=== PATIENT | female | born 1990 | race Caucasian/White ===

== ENCOUNTER 2024-09-28 11:05 | Inpatient (IN) | payer OTHER ==
[2024-09-28] MEDS: KETOROLAC 15 MG/ML 1 ML VIAL IVP STA (13:12)
[2024-09-28] MEDS: ORPHENADRINE 30 MG/ML 2 ML VIAL IVP STA (13:12)
[2024-09-28] MEDS: HYDROmorphone 1 MG/ML 1 ML SYRINGE IVP STA (13:13)
--- NOTE | 2024-09-28 13:28 | ED ---
General Adult HPI - General Chief complaint: Extremity Problem,Nontraumatic Stated complaint: L leg pain Time Seen by Provider: 09/28/24 11:18 Source: patient, RN notes reviewed Mode of arrival: ambulatory Limitations: no limitations - History of Present Illness Initial comments: This is a 34-year-old female presenting for lower back and left leg pain/numbness x 1 month. Patient states her pain and numbness started after use of a decompression table at her chiropractor's office. States pain progressively worsened over the next several days afterwards, including pain into her rectum with associated shooting/tingling into her left lower extremity extending to her outer foot. States she worked closely with chiropractor in addressing her pain over the next several weeks with transient relief of symptoms. Patient endorses numbness in her rectal and genital region as well as between her thighs and occasional sharp pain in her left calf. Patient states pain has worsened significantly since last night despite use of ice and ibuprofe n. States pain worsens when sitting/standing upright and is relieved when supine. States she is felt wetness from possible urinary incontinence but is unsure if she was actually incontinent. Denies fever, chills, chest pain, dyspnea, abdominal pain, N/V/D. Onset/Timin -: month(s) Location: genitals, buttocks, left, lower extremity Radiation: distal Severity scale (1-10): 8 Quality: other (Tingling, shooting) Consistency: constant Improves with: immobilization Worsens with: movement Associated Symptoms: other (Perineal and inner thigh paresthesia) Treatments Prior to Arrival: NSAID, cold therapy - Related Data Home Medications Medication Instructions Recorded Confirmed Ibuprofen [Motrin Ib] 400 - 600 mg PO Q4H PRN 09/28/24 09/28/24 Allergies Allergy/AdvReac Type Severity Reaction Status Date / Time Penicillins Allergy Rash/Hives Verified 09/28/24 14:49 Review of Systems ROS Statement: Those systems with pertinent positive or pertinent negative responses have been documented in the HPI. ROS Other: All systems not noted in ROS Statement are negative. Past Medical History Past Medical History: No Reported History History of Any Multi-Drug Resistant Organisms: None Reported Past Surgical History: No Surgical Hx Reported Past Psychological History: Anxiety Smoking Status: Never smoker Past Alcohol Use History: Rare Past Drug Use History: Marijuana General Exam Limitations: no limitations General appearance: alert, in no apparent distress Head exam: Present: atraumatic, normocephalic, normal inspection Eye exam: Present: normal appearance, PERRL, EOMI. Absent: scleral icterus, conjunctival injection, periorbital swelling ENT exam: Present: normal exam, mucous membranes moist Neck exam: Present: normal inspection. Absent: tenderness, meningismus, lymphadenopathy Respiratory exam: Present: normal lung sounds bilaterally. Absent: respiratory distress, wheezes, rales, rhonchi, stridor Cardiovascular Exam: Present: regular rate, normal rhythm, normal heart sounds. Absent: systolic murmur, diastolic murmur, rubs, gallop, clicks GI/Abdominal exam: Present: soft, normal bowel sounds. Absent: distended, tenderness, guarding, rebound, rigid Extremities exam: Present: full ROM, normal capillary refill, other (Patient notes inner thigh paresthesia. BLE distal neurovascular and motor function in tact. Dorsalis pedis pulse +2 bilaterally. Bilateral strength 5/5 with plantar/dorsiflexion, hip and knee flexion). Absent: tenderness, pedal edema, joint swelling, calf tenderness Back exam: Present: muscle spasm, paraspinal tenderness (Positive left parasacral muscle spasm and point tenderness), vertebral tenderness (Positive significant lumbar sacral TTP without obvious crepitus or step-off), other (Patient notes significant lower back pain when upright, preferring to remain supine). Absent: CVA tenderness (R), CVA tenderness (L) Neurological exam: Present: alert, oriented X3, CN II-XII intact Psychiatric exam: Present: normal affect, normal mood Skin exam: Present: warm, dry, intact, normal color. Absent: rash Course Vital Signs 09/28/24 09/28/24 12:16 15:04 Temperature 97.7 F 98.0 F Pulse Rate 80 89 Respiratory 22 20 Rate Blood Pressure 111/69 116/73 O2 Sat by Pulse 98 100 Oximetry Medical Decision Making - Medical Decision Making Was pt. sent in by a medical professional or institution (, PA, [facility] [employer], urgent care, hospital, or fci...) When possible be specific @ -No Did you speak to anyone other than the patient for history (EMS, parent, family, police, friend...)? What history was obtained from this source @ -No Did you review nursing and triage notes (agree or disagree)? Why? @ -I reviewed and agree with nursing and triage notes Were old charts reviewed (outside hosp., previous admission, EMS record, old EKG, old radiological studies, urgent care reports/EKG's, fci records)? Report findings @ -No old charts were reviewed Differential Diagnosis (chest pain, altered mental status, abdominal pain women, abdominal pain men, vaginal bleeding, weakness, fever, dyspnea, syncope, headache, dizziness, GI bleed, back pain, seizure, CVA, palpatations, mental health, musculoskeletal)? @ -Differential Back Pain: Strain, zoster, cauda equina syndrome, epidural abscess, vertebral osteomyelitis, discitis, fracture, subluxation, disc herniation, DJD, spinal stenosis, dissection, AAA, pancreatitis, peptic ulcer disease, pyelonephritis, kidney stone, this is not meant to be an all-inclusive list. EKG interpreted by me (3pts min.). @ -Not done X-rays interpreted by me (1pt min.). @ -None done CT interpreted by me (1pt min.). @ -Lumbar spine CT shows large central disc herniation with caudad migratory component resulting in spinal cord compression and significant canal stenosis at L5-S1. No acute fractures visualized. U/S interpreted by me (1pt. min.). @ -None done What testing was considered but not performed or refused? (CT, X-rays, U/S, labs)? Why? @ -None What meds were considered but not given or refused? Why? @ -None Did you discuss the management of the patient with other professionals (professionals i.e. , PA, [facility], lab, RT, psych nurse, social media marketing specialist, full fashioned garment knitter, teacher, chief innovation officer, correctional casework specialist)? Give summary @ -Spoke to Nikita from orthopedics who advised to admit under medicine with Ortho consult if there are any concerning CT findings. Spoke to Dr. Elam from [facility] who advised stat MRI with orthopedics consult. Was smoking cessation discussed for >3mins.? @ -No Was critical care preformed (if so, how long)? @ -No Were there social determinants of health that impacted care today? How? (Homelessness, low income, unemployed, alcoholism, drug addiction, transportation, low edu. Level, literacy, decrease access to med. care, [facility], rehab)? @ -No Was there de-escalation of care discussed even if they declined (Discuss DNR or withdrawal of care, Hospice)? DNR status @ -No What co-morbidities impacted this encounter? (DM, HTN, Smoking, COPD, CAD, Canc er, CVA, ARF, Chemo, Hep., AIDS, mental health diagnosis, sleep apnea, morbid obesity)? @ -None Was patient admitted / discharged? Hospital course, mention meds given and route, prescriptions, significant lab abnormalities, going to OR and other pertinent info. @ - Patient initially provided IV Dilaudid, Toradol and Norflex. Lumbar spine CT shows large central disc herniation with caudad migratory component resulting in spinal cord compression and significant canal stenosis at L5-S1. No acute fractures visualized. Patient given IV Decadron. Spoke to Dr. Elam from [facility] who advised stat MRI with orthopedics consult. Stat lumbar MRI ordered. Lab work generally unremarkable. Discussed patient with Dr. Rodriguez. Undiagnosed new problem with uncertain prognosis? @ -Cauda equina Drug Therapy requiring intensive monitoring for toxicity (Heparin, Nitro, Insulin, Cardizem)? @ -No Were any procedures done? @ -No Diagnosis/symptom? @ -Cauda equina syndrome Acute, or Chronic, or Acute on Chronic? @ -Acute Uncomplicated (without systemic symptoms) or Complicated (systemic symptoms)? @ -Complicated Side effects of treatment? @ -No Exacerbation, Progression, or Severe Exacerbation? @ -No Poses a threat to life or bodily function? How? (Chest pain, USA, MA, pneumonia, PE, COPD, DKA, ARF, appy, cholecystitis, CVA, Diverticulitis, Homicidal, Suicidal, threat to staff... and all critical care pts) @ -Cauda equina - Lab Data Result diagrams: 09/28/24 13:08 09/28/24 13:08 Lab Results 09/28/24 09/28/24 09/28/24 Range/Units 13:08 13:08 13:08 WBC 5.16 (4.50-10.00) 10*3/uL RBC 3.95 L (4.10-5.20) 10*6/uL Hgb 12.5 (12.0-15.0) g/dL Hct 35.2 L (37.2-46.3) % MCV 89.1 (80.0-97.0) fL MCH 31.6 (27.0-32.0) pg MCHC 35.5 (32.0-37.0) g/dL Plt Count 183 (140-440) 10*3/uL MPV 11.4 (9.5-12.2) fL Immature Gran % (Auto) 0.2 % Neutrophils % 53.4 % Lymphocytes % 38.6 % Monocytes % 5.4 % Eosinophils % 1.4 % Basophils % 1.0 % Immature Gran # 0.01 (0.00-0.04) 10*3/uL Neutrophils # 2.76 (1.80-7.70) 10*3/uL Lymphocytes # 1.99 (0.90-5.00) 10*3/uL Monocytes # 0.28 (0.20-1.00) 10*3/uL Eosinophils # 0.07 (0.04-0.35) 10*3/uL Basophils # 0.05 (0.00-0.10) 10*3/uL Sodium 139 (137-145) mmol/L Potassium 3.8 (3.5-5.1) mmol/L Chloride 106 (98-107) mmol/L Carbon Dioxide 19 L (22-30) mmol/L Anion Gap 14 mmol/L BUN 22 H (7-17) mg/dL Creatinine 0.75 (0.52-1.04) mg/dL Est GFR (CKD-EPI)AfAm >90 (>60 ml/min/1.73 sqM) Est GFR (CKD-EPI)NonAf >90 (>60 ml/min/1.73 sqM) Glucose 74 (74-99) mg/dL Calcium 9.6 (8.4-10.2) mg/dL Total Bilirubin 0.7 (0.2-1.3) mg/dL AST 18 (14-36) U/L ALT 11 (4-34) U/L Alkaline Phosphatase 46 (38-126) U/L Total Protein 7.7 (6.3-8.2) g/dL Albumin 4.8 (3.5-5.0) g/dL HCG, Qual Not Detected Urine Color Urine Appearance (Clear) Urine pH (5.0-8.0) Ur Specific [place] (1.001-1.035) Urine Protein (Negative) Urine Glucose (UA) (Negative) Urine Ketones (Negative) Urine Blood (Negative) Urine Nitrite (Negative) Urine Bilirubin (Negative) Urine Urobilinogen (<2.0) mg/dL Ur Leukocyte Esterase (Negative) 09/28/24 Range/Units 13:46 WBC (4.50-10.00) 10*3/uL RBC (4.10-5.20) 10*6/uL Hgb (12.0-15.0) g/dL Hct (37.2-46.3) % MCV (80.0-97.0) fL MCH (27.0-32.0) pg MCHC (32.0-37.0) g/dL Plt Count (140-440) 10*3/uL MPV (9.5-12.2) fL Immature Gran % (Auto) % Neutrophils % % Lymphocytes % % Monocytes % % Eosinophils % % Basophils % % Immature Gran # (0.00-0.04) 10*3/uL Neutrophils # (1.80-7.70) 10*3/uL Lymphocytes # (0.90-5.00) 10*3/uL Monocytes # (0.20-1.00) 10*3/uL Eosinophils # (0.04-0.35) 10*3/uL Basophils # (0.00-0.10) 10*3/uL Sodium (137-145) mmol/L Potassium (3.5-5.1) mmol/L Chloride (98-107) mmol/L Carbon Dioxide (22-30) mmol/L Anion Gap mmol/L BUN (7-17) mg/dL Creatinine (0.52-1.04) mg/dL Est GFR (CKD-EPI)AfAm (>60 ml/min/1.73 sqM) Est GFR (CKD-EPI)NonAf (>60 ml/min/1.73 sqM) Glucose (74-99) mg/dL Calcium (8.4-10.2) mg/dL Total Bilirubin (0.2-1.3) mg/dL AST (14-36) U/L ALT (4-34) U/L Alkaline Phosphatase (38-126) U/L Total Protein (6.3-8.2) g/dL Albumin (3.5-5.0) g/dL HCG, Qual Urine Color Colorless Urine Appearance Clear (Clear) Urine pH 5.5 (5.0-8.0) Ur Specific [place] 1.021 (1.001-1.035) Urine Protein Negative (Negative) Urine Glucose (UA) Negative (Negative) Urine Ketones 2+ H (Negative) Urine Blood Negative (Negative) Urine Nitrite Negative (Negative) Urine Bilirubin Negative (Negative) Urine Urobilinogen <2.0 (<2.0) mg/dL Ur Leukocyte Esterase Negative (Negative) Disposition Clinical Impression: Cauda equina compression Disposition: ADMITTED IP TO THIS HOSP Condition: Fair Referrals: Tania Davila MD [REFERRING] - 1-2 days None,Stated [Primary Care Provider] - 1-2 days Time of Disposition: 14:25 Decision Date: 09/28/24 Decision Time: 14:25
[2024-09-28 13:29] LABS: Basophils # (A) 0.05 10*3/uL (0.00-0.10); Basophils % (A) 1.0 %; Eosinophils # (A) 0.07 10*3/uL (0.04-0.35); Eosinophils % (A) 1.4 %; HCT 35.2 % (37.2-46.3); HGB 12.5 g/dL (12.0-15.0); Lymphocytes # (A) 1.99 10*3/uL (0.90-5.00); Lymphocytes % (A) 38.6 %; MCH 31.6 pg (27.0-32.0); MCHC 35.5 g/dL (32.0-37.0); MCV 89.1 fL (80.0-97.0); Monocytes # (A) 0.28 10*3/uL (0.20-1.00); Monocytes % (A) 5.4 %; Neutrophils # (A) 2.76 10*3/uL (1.80-7.70); Neutrophils % (A) 53.4 %; Platelet Count 183 10*3/uL (140-440); RBC 3.95 10*6/uL (4.10-5.20); RDW 11.2 % (11.5-14.5); WBC 5.16 10*3/uL (4.50-10.00)
[2024-09-28] MEDS: DEXAMETHASONE SOD PHOSPHATE 10 MG/ML 1 ML VIAL IVP STA (13:37)
[2024-09-28 13:45] LABS: ALT 11 U/L (4-34); AST 18 U/L (14-36); African American GFR (CKD) >90 (>60 ml/min/1.73 sqM); Albumin 4.8 g/dL (3.5-5.0); Alkaline Phosphatase 46 U/L (38-126); Anion Gap 14 mmol/L; Blood Urea Nitrogen 22 mg/dL (7-17); Calcium 9.6 mg/dL (8.4-10.2); Carbon Dioxide 19 mmol/L (22-30); Chloride 106 mmol/L (98-107); Glucose 74 mg/dL (74-99); Non-African American GFR(CKD) >90 (>60 ml/min/1.73 sqM); Potassium 3.8 mmol/L (3.5-5.1); Sodium 139 mmol/L (137-145); Total Protein 7.7 g/dL (6.3-8.2)
[2024-09-28 14:01] LABS: Bilirubin,Urine Negative (Negative); Blood,Urine Negative (Negative); Color,Urine Colorless; Glucose,Urine (UA) Negative (Negative); Ketones,Urine 2+ (Negative); Leukocyte Esterase,Urine Negative (Negative); Nitrite,Urine Negative (Negative); PH, Urine 5.5 (5.0-8.0); Protein,Urine Negative (Negative); Specific Gravity,Urine 1.021 (1.001-1.035); Urobilinogen,Urine <2.0 mg/dL (<2.0)
--- NOTE | 2024-09-28 14:32 | CT ---
EXAMINATION TYPE: CT lumbar spine wo con CT DLP: 313.2 mGycm, Automated exposure control for dose reduction was used. DATE OF EXAM: 09/28/2024 2:11 PM COMPARISON: None. CLINICAL INDICATION:Female, 34 years old with history of Perineal paresthesia with lower back pain/TT P; PHH, Perineal paresthesia with lower back and leg pain., pain TECHNIQUE: Multiple axial images were obtained from the midportion of T11 through the sacroiliac mary kay nts. Soft tissue and bone windows in coronal and sagittal planes were obtained and reviewed. 3-D ref ormats of the bones were created on a separate workstation and submitted for review. Contrast used: mL of , (None, if empty). Oral contrast used: (None, if empty). FINDINGS: Alignment: There are 5 lumbar type vertebral bodies. There is mild retrolisthesis of L5 on S1. Bone: No acute fractures. Discs: T12-L1: No spinal canal or neural foraminal stenosis is identified. L1-L2: No spinal canal or neural foraminal stenosis is identified. L2-L3: No spinal canal or neural foraminal stenosis is identified. L3-L4: No spinal canal or neural foraminal stenosis is identified. L4-L5: There is a circumferential disc bulge seen resulting in mild spinal canal stenosis and mild ri ght neural foraminal stenosis. L5-S1: There is a large central disc extrusion of a partially calcified disk with suggested caudad mi gration of approximately 1.0 cm resulting in significant spinal canal stenosis and compression of the spinal cord at this level. No significant neural foraminal stenosis identified. Other: None IMPRESSION: 1. Large central disc herniation with a caudad migratory component resulting in spinal cord compressi on and significant spinal canal stenosis at L5-S1. Limited visualization of the spinal canal on this study. Dedicated MRI lumbar spine could provide better spinal cord details. 2. No acute fractures. Mild degenerative disk disease at L4-L5. [facility], , 09/28/2024 2:30 PM
[2024-09-28] MEDS ORDERED: NALOXONE 0.4 MG/ML 1 ML VIAL IV PRN (15:15)
[2024-09-28] MEDS: HYDROmorphone 1 MG/ML 1 ML SYRINGE IVP PRN (16:00)
[2024-09-28] MEDS: ONDANSETRON 4 MG/2 ML VIAL IVP PRN (16:00)
[2024-09-28] MEDS ORDERED: TEMAZEPAM 15 MG CAP PO PRN (16:34)
[2024-09-28] MEDS: LORazepam 1 MG/0.5 ML VIAL IV STA (17:32)
--- NOTE | 2024-09-28 18:37 | MR ---
EXAMINATION TYPE: MR lumbar spine wo/w con DATE OF EXAM: 09/28/2024 6:29 PM COMPARISON: CT. CLINICAL INDICATION: Female, 34 years old with history of Central canal disc herniation with peroneal numb; PHH, central canal disc herniation with peroneal numb TECHNIQUE: Multi planar, multi sequence imaging was performed utilizing: T1-weighted, T2-weighted, a nd turbo inversion recovery imaging of the lumbar spine. IV Contrast: 5ml mL Gadobutrol (None, if empty) FINDINGS: Alignment: The lumbar vertebral bodies have preserved heights and alignment. Cord: The conus medullaris and the distal spinal cord appear unremarkable with regards to their signa l intensity and morphology. Bones/Discs: Mild degeneration changes throughout the spine with osteophyte formation and facet joint arthropathy. Intervertebral disc signal is maintained. No abnormal inversion recovery signal to sugg est bony edema. T12-L1: No evidence of significant spinal canal stenosis or neural foraminal stenosis. L1-L2: No evidence of significant spinal canal stenosis or neural foraminal stenosis. L2-L3: No evidence of significant spinal canal stenosis or neural foraminal stenosis. L3-L4: No evidence of significant spinal canal stenosis or neural foraminal stenosis. L4-L5: No evidence of significant spinal canal stenosis or neural foraminal stenosis. L5-S1: Large central disc extrusion with caudad lesion likely migration of approximately 1.0 cm resul ting in significant spinal canal stenosis and compression of the spinal cord at this level. No signif icant neural foraminal stenosis identified. Large herniation displaces forming S1-S2 nerves. No significant spinal canal or neural foraminal stenosis in the remainder of the visualized levels. Other findings: None. IMPRESSION: 1. L5-S1 Large central disc herniation with a caudad migratory component resulting in spinal cord com pression and significant spinal canal stenosis at L5-S1 this displaces the exiting S1-S2 nerves. 2. No acute fractures. Mild degenerative disk disease at L4-L5. [facility], , 09/28/2024 6:35 PM
[2024-09-28] MEDS: HEPARIN SODIUM,PORCINE 5,000 UNIT/ML 1 ML VIAL SQ SCH (20:41)
[2024-09-28] MEDS: KETOROLAC 15 MG/ML 1 ML VIAL IVP PRN (20:42)
[2024-09-28] MEDS ORDERED: DEXAMETHASONE SOD PHOSPHATE 4 MG/ML 1 ML VIAL IV PRN (21:59)
[2024-09-28] MEDS ORDERED: SENNOSIDES 8.6 MG TAB PO PRN (21:59)
--- NOTE | 2024-09-28 21:59 | P.PN ---
Progress Note - Text Progress Note Date: 09/28/24 Patient Name Zion Martinez History/Background 34-year-old female presents to the emergency department with complaints of increasing pain in the lower extremities as well as numbness in the genitals and weakness. This has been going on for the past month. Patient was admitted to the medicine service with orthopedic spine consultation. Clinical Observations MRI of lumbar spine demonstrated a large L5-S1 disc herniation with severe spondylosis, disc collapse as well as bilateral foraminal stenosis and central stenosis that is severe. On the floor, patient was able to minimally ambulate around the room, however having difficulty due to pain. Nursing reports bladder scan showed 199 cc and patient did void on her own. Patient states that numbness has decreased in genitals, however still having inner thigh numbness and tingling that goes down her legs. Patient is currently on IV steroids, Toradol, and PO Gabapentin which is helping with symptoms and pain medication. Plan/Recommendations Patient will be taken urgently in the morning for L5-S1 microdiscectomy due to impending cauda equina symptoms. Currently managing symptoms with IV steroids, Toradol, and PO Gabapentin along with pain medication, which is helping with her symptoms and we will continue this. She will be kept NPO, abx ordered and TXA for surgery. Risks Potential risks associated with the L5-S1 microdiscectomy procedure include bleeding, infection, nerve damage which may result in permanent numbness or weakness, cerebrospinal fluid leak, recurrence of disc herniation, and failure to alleviate symptom completely.
[2024-09-28] MEDS: GABAPENTIN 300 MG CAP PO SCH (23:12)
[2024-09-28] MEDS: HYDROmorphone 0.5 MG/0.5 ML SYRINGE IVP PRN (23:14)
[2024-09-29] MEDS: KETOROLAC 15 MG/ML 1 ML VIAL IM SCH (01:15)
[2024-09-29] MEDS: PANTOPRAZOLE 40 MG TABLET PO SCH (05:21)
--- NOTE | 2024-09-29 07:29 | P.HPOR ---
History of Present Illness H&P Date: 09/29/24 Lou Donovan presents with the chief complaint of "really consistent back problems" for the last year and a half, with acute worsening over the past month. Patient reports that after being placed on a decompression table by her chiropractor one month ago, she experienced immediate onset of severe pain "coming right out of my behind" that radiated down her leg. The pain progressively worsened over three days to the point where she "didn't really sleep for like three days because of the amount of pain." Patient describes associated bowel and bladder dysfunction, including loss of bowel control with diarrhea episodes where she has "no control, no time whatsoever to get there." She reports intermittent numbness in the groin area and occasional loss of sensation in the genitals, describing it as "bloating" and "like a vaginal cramp." Patient denies current asymmetric symptoms, stating both sides feel "the same as far as like" pain and numbness. Patient has been seeing chiropractors for treatment, initially with minimal benefit from one provider, then switching to another who was "more informative, more gentle." After the decompression table incident, she was seen twice daily for approximately two and a half weeks with continued worsening after each decompression session. 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 [place] - Enjoys dancing as therapy - History of ballet when younger Objective Physical Examination: - Sensation testing: Patient able to feel touch bilaterally and symmetrically - Rectal sensation: Intact - Straight leg raise test: Left leg raising causes pulling sensation in hamstring extending up to the back, described as "like a twang" - No current asymmetric pain or numbness reported during examination -4/5 DF/PF BLE -Decreased S1 sensation as well as S2-3 sensation Imaging: - MRI demonstrates very large disc herniation at L5-S1 with significant degenerative changes and arthritis at this level with severe stenosis. - Disc height severely compromised with minimal remaining disc material -L4-5 spondylosis with degenerative disc changes. Assessment 1. Large disc herniation at L5-S1 with cauda equina syndrome - Supporting findings: - Very large disc herniation on MRI at L5-S1 level - Bowel dysfunction with no loss of control - Intermittent genitourinary numbness and sensation changes - Severe radicular pain with leg radiation - Progressive neurological symptoms over one month - Differential diagnoses: Lumbar spinal stenosis, degenerative disc disease with instability 2. Degenerative disc disease L4-S1 with arthritis - Supporting findings: - Significant degenerative changes visible on imaging - Chronic back pain history - Loss of disc height - Family history of spinal problems Plan 1. Large disc herniation at L5-S1 with cauda equina syndrome - Urgent surgical intervention required today - Two surgical options discussed with patient: a) Laminoforaminotomy with microdiscectomy - minimal approach to decompress nerves and remove herniated disc material b) Laminoforaminotomy with posterior lumbar interbody fusion (PLIF) - deco mpression plus fusion with cage and hardware - Patient given time to consider surgical options - NPO status maintained for surgery - Recovery expectations: 6-8 weeks initial healing, physical therapy at 2 weeks - Long-term prognosis: 80-90% improvement expected based on studies -Risks and benefits discussed at length. 2. Degenerative disc disease L5-S1 - Surgical management as above will address both herniation and degenerative changes - Discussion of potential future adjacent level disease due to biomechanical changes - Patient counseled on activity modifications post-operatively - Follow-up planned post-operatively to assess surgical outcomes Risks Though surgery is aimed to reduce or eliminate symptoms, risks associated with both surgical options include, but are not limited to, the followin. Infection: As with any surgical procedure, there is a risk of infection at the surgical site, which may require further treatment. 2. Bleeding: There is a possibility of significant blood loss during the procedure. 3. Nerve Damage: While the goal is to relieve nerve compression, there is a risk of additional damage to the nerves during surgery, possibly leading to worsened symptoms. 4. Re-herniation or Adjacent Segment Disease: There is a risk that the remaining disc may herniate again or that degeneration may occur in adjacent segments due to altered spine mechanics. 5. Dural Tear: There is a possibility of a tear in the dura mater, which can result in cerebrospinal fluid leakage and may require additional intervention to repair. 6. Hardware Complications: In the case of fusion, there is a risk of complications involving the surgical hardware, such as screws or rods breaking or loosening over time. Patients are encouraged to discuss these risks, as well as any other concerns, with their surgical team to make an informed decision. The medical necessity for surgical intervention in Zion's case is driven by the presence of a large disc herniation at the L5-S1 level, which is causing significant neurological symptoms, including severe radicular pain, bowel and bladder dysfunction, and intermittent numbness in the groin and genital area. This condition is indicative of possible cauda equina syndrome, which necessitates urgent surgical intervention to relieve nerve compression, prevent further neurological deterioration, and address the patient's debilitating symptoms. The surgical rationale includes two potential procedures: a microdiscectomy to remove the herniated disc material and decompress the affected nerves for s ymptom relief, or a more comprehensive approach involving spinal fusion to stabilize the spinal segment, restore disc height, and prevent further degeneration. Both options aim to alleviate immediate symptoms and improve the patient's quality of life, with the choice determined by the patient's current condition and long-term management preferences. Past Medical History Past Medical History: No Reported History History of Any Multi-Drug Resistant Organisms: None Reported Past Surgical History: No Surgical Hx Reported Past Psychological History: Anxiety Smoking Status: Never smoker Past Alcohol Use History: Rare Past Drug Use History: Marijuana Medications and Allergies Home Medications Medication Instructions Recorded Confirmed Type Ibuprofen [Motrin Ib] 400 - 600 mg PO Q4H PRN 09/28/24 09/28/24 History Allergies Allergy/AdvReac Type Severity Reaction Status Date / Time Penicillins Allergy Rash/Hives Verified 09/28/24 14:49 Physical Examination Osteopathic Statement: *. No significant issues noted on an osteopathic structural exam other than those noted in the History and Physical/Consult. Results - Labs Labs: Abnormal Lab Results - Last 24 Hours (Table) 09/28/24 09/28/24 09/28/24 Range/Units 13:08 13:08 13:46 RBC 3.95 L (4.10-5.20) 10*6/uL Hct 35.2 L (37.2-46.3) % Carbon Dioxide 19 L (22-30) mmol/L BUN 22 H (7-17) mg/dL Urine Ketones 2+ H (Negative) H & H 09/28/24 Range/Units 13:08 Hgb 12.5 (12.0-15.0) g/dL Hct 35.2 L (37.2-46.3) % Result Diagrams: 09/28/24 13:08 09/28/24 13:08
[2024-09-29] MEDS: ASCORBIC ACID 500 MG TAB PO SCH (08:27)
[2024-09-29] MEDS: CHOLECALCIFEROL 125 MCG (5000 IU) TABLET PO SCH (08:27)
[2024-09-29] MEDS: DOCUSATE 100 MG CAP PO SCH (08:28)
--- NOTE | 2024-09-29 12:49 | HP ---
HISTORY AND PHYSICAL CHIEF COMPLAINT: Back pain, numbness and weakness. HISTORY OF PRESENT ILLNESS: This 34-year-old woman with a past medical history of anxiety, was having back pain and the patient was having the chiropractor, who was using "decompression table." The patient is complaining of some weakness and numbness and some of the incontinence and urinary difficulties. The patient came to [facility] and lumbar spine CAT scan showed large central disc herniation with spinal cord compression, significant spinal canal stenosis L5-S1. The patient is recommend MRI and Orthopedic evaluation. This patient remained closely monitored. There is no history of fever, rigors, chills at this time. PAST MEDICAL HISTORY: History of anxiety. Rest of the chart is also reviewed. HOME MEDICATIONS: Motrin. ALLERGIES: Penicillin. FAMILY HISTORY: No history of heart disease or strokes in the family. SOCIAL HISTORY: No history of smoke. Occasional THC. REVIEW OF SYSTEMS: Fourteen-point review of systems negative except as mentioned earlier. PHYSICAL EXAMINATION: VITAL SIGNS: Pulse is 89, blood pressure 116/70, respirations 20. HEENT: Conjunctivae normal. NECK: No JVD. CARDIOVASCULAR: S1, S2. RESPIRATIONS: Breath sounds diminished at the bases. ABDOMEN: Soft, nontender. LEGS: No edema. NERVOUS SYSTEM: Nonfocal. Minimal sensory abnormalities noted in the posterior leg. LABORATORY DATA: Reviewed. ASSESSMENT: 1. Back pain and radiculopathy with large central disc herniation with spinal canal stenosis, L5-S1 with spinal cord compression. 2. Anxiety. 3. History of THC. RECOMMENDATION: This 34-year-old woman who presented with significant symptoms of spinal cord compression. We will treat the patient empirically. Recommend MRI as well as Orthopedic Surgery consultation. Pain management. The prognosis is guarded because of multiple complex medical issues and further recommendations to follow. See orders for details. MMODL / IJN: [id number] /
[2024-09-29] MEDS: KETOROLAC 15 MG/ML 1 ML VIAL IVP SCH (13:51)
[2024-09-29] MEDS: IV FLUID CONTINUATION 1,000 ML IV ONE ×3 (15:40→15:56)
[2024-09-29] MEDS: LACTATED RINGERS 1,000 ML BAG IV STA (15:51)
--- NOTE | 2024-09-29 16:33 | P.PN ---
Progress Note - Text Progress Note Date: 09/29/24 Patient seen and evaluated in the preoperative area we discussed at length again her desires for this and she is wanting to proceed with L5-S1 posterior lateral body fusion through an MIS technique. She having severe left lower extremity pain as well as now right lower extremity pain left is worse than right. She states that she still having numbness and tingling down her thighs inner thighs and genitalia area which is off-and-on. Her family is at bedside and they agree. We discussed risks and benefits. Patient is willing to proceed with surgery Surgical recommendation: L5-S1 posterior lateral and interbody fusion ## Surgical Rationale and Medical Necessity for L5-S1 Posterior Lumbar Interbody Fusion After thorough discussion of surgical options, Zion has elected to proceed with a laminoforaminotomy with posterior lumbar interbody fusion (PLIF) at the L5-S1 level. This decision is medically necessary due to the presence of cauda equina syndrome with bowel dysfunction and intermittent genital numbness, coupled with significant degenerative disc disease and arthritis at L5-S1. The fusion approach is specifically indicated in this case given the severe loss of disc height, significant instability at the L5-S1 segment, and the patient's progressive neurological deterioration despite conservative management. Standard microdiscectomy alone would address the neural compression but would not correct the underlying segmental instability and degenerative changes, potentially leading to recurrent herniation and continued mechanical pain. PLIF provides immediate stabilization of the compromised segment while facilitating biological fusion for long-term results, addressing both the neural compression and biomechanical factors contributing to the patient's condition. ## Risks and Complications of Fusion Procedure The patient has been informed of the potential risks and complications associated with PLIF surgery, including but not limited to: anesthesia-related complications, surgical site infection, dural tear with cerebrospinal fluid leak, nerve root damage potentially resulting in new or worsened neurological deficits, vascular injury, hardware failure or malposition requiring revision surgery, pseudarthrosis (failure of fusion), adjacent segment disease a ccelerated by the fusion, persistent or recurrent pain despite adequate decompression and fusion, and deep vein thrombosis or pulmonary embolism. The patient has also been counseled that fusion procedures typically involve longer operative time, increased blood loss, and potentially longer recovery periods compared to decompression-only procedures. Despite these risks, given the severity of the patient's cauda equina syndrome and significant degenerative changes, the benefits of surgical intervention with fusion outweigh the risks of continued neurological deterioration, which could lead to permanent neurological damage including irreversible bowel/bladder dysfunction if left untreated. The patient expressed understanding of these risks and wishes to proceed with the PLIF procedure today.
[2024-09-29] MEDS ORDERED: KETAMINE HCL IN 0.9 % NACL 50 MG/5 ML SYRINGE ONE (16:37)
[2024-09-29] MEDS ORDERED: TRANEXAMIC 1,000 MG/100ML-NACL PREMIX BAG ONE (16:37)
[2024-09-29] MEDS ORDERED: PHENYLEPHRINE-0.9% NACL SYG 1,000 MCG/10 ML SYRINGE ONE (16:37)
[2024-09-29] MEDS ORDERED: MIDAZOLAM 2 MG/2 ML VIAL ONE (16:37)
[2024-09-29] MEDS ORDERED: GLYCOPYRROLATE 0.2 MG/ML 2 ML VIAL ONE (16:37)
[2024-09-29] MEDS ORDERED: SUCCINYLCHOLINE CHLORIDE 200 MG/10 ML VIAL IV ONE (16:37)
[2024-09-29] MEDS ORDERED: fentaNYL (PF) 50 MCG/ML 2 ML AMP ONE (16:37)
[2024-09-29] MEDS ORDERED: PROPOFOL 10 MG/ML 20 ML VIAL IV ONE (16:37)
[2024-09-29] MEDS ORDERED: LIDOCAINE 1% INJ 10MG/ML (20 ML MDV) ONE (16:37)
[2024-09-29] MEDS: THROMBIN (BOVINE) 5,000 UNIT VIAL TOPICAL ONE (16:42)
[2024-09-29] MEDS: SODIUM CHLORIDE 0.9% 100 ML with ceFAZolin 2,000 MG IV ONE (16:42)
[2024-09-29] MEDS: LIDOCAINE 2%-EPI 1:100,000 20 ML VIAL SQ ONE ×2 (17:08→18:30)
[2024-09-29] MEDS: BUPIVACAINE (PF) 0.5% 30 ML VIAL SQ ONE ×2 (17:08→18:30)
--- NOTE | 2024-09-29 18:30 | P.OP ---
Date of Procedure: 09/29/24 Preoperative Diagnosis: 1. L5-S1 large new herniated nucleus pulposus with severe stenosis 2. Impending caudal symptoms 3. Lower extremity radiculopathy BIlateral 4. Low back pain severe 5. Lower extremity weakness Postoperative Diagnosis: 1. L5-S1 large new herniated nucleus pulposus with severe stenosis 2. Impending caudal symptoms 3. Lower extremity radiculopathy BIlateral 4. Low back pain severe 5. Lower extremity weakness Procedure(s) Performed: 1. L5-S1 POSTEROLATATERAL AND INTERBODY FUSION 2. L5-S1 SEGMENTAL INSTRUMENTATION 3. L5-S1 BILATERAL LAMINECTOMY, FACETECTOMY AND FORAMINOTOMY 4. INSERTION OF BIOMECHANICAL DEVICE L5-S1, CAGE x1 USE OF IONM ALL SCREWS TESTING > 20 mA USE OF IO MICROSCOPE Implants: -[employer] RODS [employer] SCERWS -GLOBUS SABLE CAGE 8 DEG 7-14, SHORT -ALLOCELL, CONTOUR, DBM, AUTOGRAFT Anesthesia: GETA Surgeon: Prasanth Holloway Child Support Case Officer #1: Glen Young (SHERI Whitehead Was present and assisted with all aspects of the case from positioning to dressing placement) Estimated Blood Loss (ml): 100 IV fluids (ml): 1,200 Urine output (ml): 0 Pathology: none sent Condition: stable Disposition: PACU Indications for Procedure: Spine Surgery Clinical and Risk Review LAYLA Martinez is a 34-year-old female presenting for evaluation of lower extremity numbness and tingling genital numbness and tingling difficulty with urination difficulty with ambulation. It was my pleasure to have seen and examined LAYLA Martinez. In our visit today we have had a chance to go over subjective complaints, physical examination findings and treatments including the natural course history without intervention and various interventional options. The patients imaging demonstrates large L5-S1 disc herniation with severe central and bilateral foraminal stenosis severe spondylosis with severe disc height collapse with disc collapse with vacuum disc phenomena L4-L5 spondylosis On physical exam, LAYLA Martinez demonstrates Bilateral lower extremity numbness and tingling intermittent genital numbness and tingling difficulty with urination low back pain severe lower extremity pain tensioning signs positive straight leg raise 4-5 strength bilateral lower extremities decreased perirectal sensation. I have explained to the patient that as their condition progresses it will cause further neurological deficits and eventual paralysis. Based on the patients imaging, physical exam, and the rapid progression and disabling nature of their symptoms, at this time I recommend surgery in the form or a: L5-S1 minimally invasive posterior lateral interbody fusion with decompression. I discussed the risk and benefits of this procedure at length with LAYLA Martinez. The patient and family agreed to considered pursuing the procedure abovementioned. Prior to surgery, she should follow up with her PCP (Cardio, ID, IM etc) for clearance. Questions were invited and answered, and the patient wishes to proceed as outlined below. Currently, I am recommendin. Urgent L5-S1 minimally invasive posterior lateral interbody fusion with decompression 2. Follow up with PCP for surgical clearance 3. Review of surgical risks and benefits as well as an educational packet on the proposed surgical procedure. Risks: All surgical procedures come with inherent risks, including those related to positioning, anesthesia, intraoperative findings, and postoperative complications. It is important to understand that surgery does not come with any guarantee of a successful outcome as complications and adverse events are always possible. The patient was given a handout in office today discussing the surgical procedure and risks associated with the intervention, both of which were discussed with the patient. These risks include but are not limited to the following: Experiencing same, different or even worse symptoms in back, neck, arms, or legs compared to before surgery. Requiring further surgery or other forms of treatment presently or at some time in the future at same or other levels of the intended spine surgery. On an extreme but fortunately relatively rare basis severe c omplication such as blindness, stroke, heart attack, temporary and/or permanent nerve injury, paralysis, coma, or may occur, sometimes without known explanation. Surgical complications may include but are not limited to risk of infection, fluid accumulation in the surgical dissection site, including a seroma or hematoma, that requires additional surgery, wound drainage, bleeding, new numbness or weakness, vision changes/loss, spinal fluid leakage, non-healing and/or infected incision, headaches, difficulty or inability to swallow, hoarseness, hemopneumothorax, pneumothorax, impotence, retrograde ejaculation, vaginal dryness; injury to nerves, spinal cord, blood vessels, lymphatics or other vital organs (i.e., bowel injury, injury to the great vessels); heterotopic bone formation; complications related to the hardware such as screws, rods, cages including misplaced hardware, device failure, instrumentation at the wrong spine level, hardware fracture/breakage, or hardware loosening; vertebral failure of the spinal column above or below the newly placed hardware; retained surgical instrumentations or devices and the need for further surgery. Medical risks of the planned spine surgery include but are not limited to generalized Infections to the whole body or local areas outside of the surgical site (sepsis), heart attack, bleeding, anaphylaxis, meningitis, seizure, epilepsy, hearing loss, burn marrero, laceration of the head or other areas of the body, bruising, hypersensitivity of the skin, bladder over distension; allergic reaction; shoulder injury related to positioning; fat, blood and air clots to other areas of the body like heart, lungs, brain; failure of internal organs such as lungs, kidneys, liver and excessive bleeding. If blood transfusions are necessary, note that transfusions may cause intolerance reactions such as anaphylaxis or other complex reactions. Despite best efforts, the results of spine surgery might not heal in terms of bone, soft tissues such as skin, fascia, ligaments, and joints. Additionally, in order to achieve best possible results, spine surgery may be carried out beyond the initially planned levels and involve decompression, fusion including insertion of hardware at levels other than the original intended area of surgical interest change some portions of the procedure in order to ensure the best possible outcomes. With spine surgery and spinal fusion, there are different off label uses of instrumentation (devices, implants and hardware) as well as biological substances (bone morphogenic proteins, demineralized bone matrix) as well as using extra bone from allograft sources (i.e. cadaver bone) or autograft (iliac crest bone, ribs, or the spine itself). The patient has been given information about these practices and their inherent risks and benefits. The patient has had a chance to review all the listed information, has been given print outs detailing this information, and has had all his/her questions answered to their satisfaction. It was my pleasure to have seen and examined LAYLA Martinez. In our visit today we have had a chance to go over my understanding of our patient's current condition, the natural course history without intervention and various interventional options. Questions were invited and answered, and the patient wishes to proceed as outlined above. I have seen and examined the patient for 25 minutes and we have spent more than 50% of the time in repeat and detailed counseling about the patient's condition, its natural course history with out and as much as can be predicted with surgery and re-review of various surgical treatment options. In conclusion, LAYLA Martinez and [his/her spouse/partner] requested we proceed with the above suggested surgery and are willing to accept risks and limitations of the suggested surgery as nature of the disease process and our best attempts at treatment for the condition. Thank you again for allowing us to be part of your patient's care. Please don't hesitate to contact me if you have any further questions. Signed and authenticated by: Prasanth Calderon [facility] [address] [facility], [address] [address] Description of Procedure: L5-S1 MIS TLIF The patient was seen and examined in the preoperative area. All preoperative protocols were followed. Informed consent was obtained, risks and benefits of the procedure were discussed at length. Risks including bleeding infection damage to the surrounding tissue and risk of reoperation were discussed with the patient. Risk of anesthesia up to and including was discussed with the patient. These are outlined in the risk review. They were willing to accept these risks and all the risks of surgery. The patient was given a weight-based dose of antibiotics in the form of 2 g Ancef. The patient was seen and evaluated by the anesthesia team who deemed them fit for surgery. The site was marked, the patient was willing to proceed with the procedure. The patient was transferred to the operative suite by the Department of anesthesia. They were then drifted off to sleep by the department anesthesia and GETA was performed. The patient tolerated this well. Gutiérrez catheter was placed by nursing staff, a-traumatically. Once confirmation of lines and ventilation the patient was transferred to a prone Jack table very carefully. All bony prominences including wrists, elbows, axilla, chest, hips, and thighs, and feet were padded very well. Special attention was paid to the genitalia, and these were padded accordingly. SCDs were placed on bilateral lower extremities and were connected. Arms were well padded and placed on arm boards up and out in the 90/90 position. Once in position, again we confirmed good ventilation capabilities and that lines were running appropriately. The patients Lumbar spine was then exposed. 1010s were placed outlining the incision site. Standard alcohol was used to clean the incision site and allowed to dry. C-arm was used to needle localize the pedicles at L5-S1 and bio-jairo the patient and confirm level for incision which was marked with a skin marker. Operative briefing was performed with all teams and everyone in agreement to proceed. The patient was then prepped and draped in a normal sterile fashion. Timeout was then performed, and all parties agreed with the procedure to be performed. C arm was then used to target pedicles bilaterally at L5-S1. Jamshidi was used and bi-planar fluoroscopy was used to access L5 pedicles. Once accessed wires were placed in their void. This was repeated at S1 bilaterally. Skin incision was then made along these wires and a perfect scalpel was used over the wire to create a path and measure screw length. Screws were then placed over wires on the contralateral side. Once the screw was at the back of the body wire was removed. The screws were confirmed to be in good position on AP and lateral. We then tested screws and they all tested above 20 mA. Attention was then turned to interbody fusion at L5-S1. The tubular retractor system was placed at the interspace of L5-S1 using a biplanar c arm. Once in position and dilated up to 26mm tube it was locked to the bed and confirmed in good position. A microscope was then brought in for visualization. Limited myomectomy was performed and laminectomy, complete facetectomy and foraminotomy performed at L5-S1 using high speed ronaldo and Kerrison rongure. The ligamentum was removed and the dural sac decompressed. Exiting and traversing roots visualized and decompressed. Neural elements were then protected, and disc space accessed with an osteotome. Sequential shaving then done under lateral imaging and complete discectomy performed using roc, pituitary and curette. Once good bleeding endplates accomplished and good height faith with trials, a combination of autograft, allograft and synthetic placed anterior in the disc space. The cage was then selected and impacted into place under lateral imaging. The cage was then expanded restoring height, lordosis and alignment. The cage was backfilled with bone graft through a funnel. The site identification specialist was removed and the area inspected. Good cage placement, stable cage and no injuries. The area was irrigated copiously, and meticulous hemostasis achieved. The tubular retractor was then removed under direct visualization. Screws were then selected and placed over the previously placed wires on the ipsilateral side. This was done in the fashion described above. Screws were then tested, and all tested above 20 mA. Shells were then placed on the tabs. Kiel length was then measured, and rods selected. They were then placed through the MIS tabs, subfascial. These were then locked into place with set screws and final tightened. Kiel holders removed and images taken showing good placement of rods, good lordosis and faith of height. Tabs were broken off. Wounds were then copiously irrigated with NSS. Orient used for TP decortication and mixture of MagnatOs, allograft and autograft packed posterolateral. Facia was then closed with 0 Vircyl on a Scorpion suture passer for MIS closure. Deep subq closed with 0 Vicryl. Superficial subq closed with 2-0 Vicryl and skin with jessi. Wound edges approximated very well. The wound was then cleaned with alcohol and dried. Wounds dressed in Optifoam dressings. The patient was then transferred off the table back to their hospital bed a- traumatically. They were extubated by the department of anesthesia. They were then transferred to PACU in stable condition having tolerated the procedure with no complications.
[2024-09-29] MEDS ORDERED: HYDROmorphone 1 MG/ML 1 ML SYRINGE IVP PRN (18:43)
[2024-09-29] MEDS: HYDROmorphone 0.5 MG/0.5 ML SYRINGE IVP PRN (18:50)
--- NOTE | 2024-09-29 18:54 | FL ---
EXAMINATION TYPE: XR lumbar spine 2 or 3V DATE OF EXAM: 09/29/2024 6:45 PM COMPARISON: Pre Operative Images if available both CT/MRI or plain film CLINICAL INDICATION: Female, 34 years old with history of LUMBAR DISCECTOMY; TECHNIQUE: XR lumbar spine 2 or 3V, multiple fluoroscopic images provided for procedure. DAP: 11.910 mGym2 Gycm2 uGym2 cGycm2 or equivalent. FINDINGS: Fluoroscopic images during internal fixation/arthroplasty demonstrate hardware in appropriate positio n. Hardware appears intact. No immediate complication identified. IMPRESSION: 1. Report was generated for administrative purposes only. 2. Please see the operative/procedural note for further details. [facility], , 09/29/2024 6:51 PM
--- NOTE | 2024-09-29 19:51 | PN ---
PROGRESS NOTE DATE OF SERVICE: 09/29/2024 SUBJECTIVE: This is a 34-year-old woman, who was admitted with back pain and numbness, had possibly large central disc herniation with radiculopathy and spinal canal stenosis. The Orthopedics has seen the patient, recommended surgery. No chest pain. No palpitation. OBJECTIVE: VITAL SIGNS: Pulse is 67, blood pressure 107/65, respirations 18. CHEST: Clear to auscultation. ABDOMEN: Soft. LABORATORY DATA: Reviewed. ASSESSMENT: 1. Back pain, radiculopathy with large central disc herniation with spinal canal stenosis, L5-S1 with spinal cord compression. 2. Anxiety. 3. History of THC. RECOMMENDATIONS: Continue current management and treatment. Otherwise at this time, I would recommend chest x-ray and EKG for completion of workup. Further recommendations to follow. MMONIELL / IJN: [id number] / MTDD
[2024-09-29] MEDS: TRANEXAMIC ACID 1,000 MG in SODIUM CHLORIDE 0.9% 100 ML IVPB ONE ×2 (20:53→20:54)
[2024-09-29] MEDS: MEPERIDINE 50 MG/ML SYRINGE IVP STA (20:54)
[2024-09-29] MEDS: ALPRAZolam 0.25 MG TAB PO PRN (20:58)
[2024-09-29] MEDS: CYCLOBENZAPRINE 10 MG TAB PO PRN (20:58)
[2024-09-29] MEDS: ACETAMINOPHEN TAB 325 MG TAB PO SCH (23:04)
[2024-09-29] MEDS: HYDROcodone/APAP 10-325MG 1 EACH TAB PO PRN (23:08)
--- NOTE | 2024-09-30 07:08 | XR ---
EXAMINATION TYPE: XR chest 1V portable DATE OF EXAM: 09/30/2024 6:44 AM COMPARISON: None TECHNIQUE: XR chest 1V portable Portable AP radiograph of the chest. CLINICAL INDICATION:Female, 34 years old with history of chf; FINDINGS: Lungs/Pleura: There is no evidence of pleural effusion, focal consolidation, or pneumothorax. Pulmonary vascularity: Unremarkable. Heart/mediastinum: Cardiomediastinal silhouette is unremarkable. Musculoskeletal: No acute osseous pathology. IMPRESSION: No acute cardiopulmonary disease/process. [facility], , 09/30/2024 7:05 AM
[2024-09-30 08:06] LABS: Basophils # (A) 0.03 X 10*3/uL (0.00-0.10); Basophils % (A) 0.4 %; Eosinophils # (A) 0.03 X 10*3/uL (0.04-0.35); Eosinophils % (A) 0.4 %; HCT 29.1 % (37.2-46.3); HGB 9.9 g/dL (12.0-15.0); Immature Grans, Automated 0.40 %; Lymphocytes # (A) 2.07 X 10*3/uL (0.90-5.00); Lymphocytes % (A) 24.5 %; MCH 31.1 pg (27.0-32.0); MCHC 34.0 g/dL (32.0-37.0); MCV 91.5 FL (80.0-97.0); Monocytes # (A) 0.42 X 10*3/uL (0.20-1.00); Monocytes % (A) 5.0 %; NRBC Per 100 WBC 0 X 10*3/uL (0.00-0.01); Neutrophils # (A) 5.86 X 10*3/uL (1.80-7.70); Neutrophils % (A) 69.3 %; Platelet Count 142 X 10*3/uL (140-440); RBC 3.18 X 10*6/uL (4.10-5.20); RDW 11.5 % (11.5-14.5); WBC 8.44 X 10*3/uL (4.50-10.00)
[2024-09-30 08:18] LABS: Anion Gap 9.00 mmol/L (4.00-12.00); BUN/Creat Ratio 15.25 Ratio (12.00-20.00); Blood Urea Nitrogen 12.2 mg/dL (9.0-27.0); Calcium 8.4 mg/dL (8.7-10.3); Carbon Dioxide 24.0 mmol/L (21.6-31.8); Chloride 105 mmol/L (96-109); Glucose 107 mg/dL (70-110); Potassium 3.7 mmol/L (3.5-5.5); Sodium 138 mmol/L (135-145)
--- NOTE | 2024-09-30 08:43 | CT ---
EXAMINATION TYPE: CT lumbar spine wo con CT DLP: 463.1 mGycm, Automated exposure control for dose reduction was used. DATE OF EXAM: 09/30/2024 8:27 AM COMPARISON: Fluoroscopic images of the lumbar spine 09/29/2024, MRI lumbar spine 09/28/2024, CT lumbar spine 09/28/2024. CLINICAL INDICATION:Female, 34 years old with history of s/p L5-S1 fusion; H, S/P L5-S1 Fusion, martha n TECHNIQUE: Multiple axial images were obtained from the midportion of T11 through the sacroiliac mary kay nts. Soft tissue and bone windows in coronal and sagittal planes were obtained and reviewed. Contrast used: none. Oral contrast used: none. FINDINGS: Postsurgical changes to the lumbar spine with bilateral rods and screws involving L5-S1. The bilatera l S1 pedicular rods extend past the anterior cortex. The right extends approximately 1.2 cm past the cortex. The left extends approximately 5 mm. The left L5 pedicular screw extends approximately 3 [address] ast the cortex. Left-sided laminectomy defect at L5. Hardware limits evaluation at these levels. Hard gomez appears intact. Extruded cement anterior to the L5-S1 disc space approximately 1.1 cm. No eviden ce of fracture. No evidence for retroperitoneal hematoma. Postsurgical changes in the soft tissues with foci of gas present. Posterior back skin jessi are pr esent. IMPRESSION: Postsurgical changes without evidence of immediate post operative complication. [facility], , 09/30/2024 8:40 AM
--- NOTE | 2024-09-30 08:52 | P.PN ---
Subjective Progress Note Date: 09/30/24 Principal diagnosis: 1. L5-S1 large new herniated nucleus pulposus with severe stenosis 2. Impending caudal symptoms 3. Lower extremity radiculopathy BIlateral 4. Low back pain severe 5. Lower extremity weakness Patient seen and examined this morning. Patient is resting comfortably in bed. She does report that she has noticed improvement since her procedure in regards to her low back pain and intermittent numbness and tingling into the left lower extremity. Patient states that she has been ambulatory within room with a walker, tolerating activity well. Surgical incision to the lumbar spine, dressing is clean dry and intact. Patient states that she just received pain medication so she is a little sleepy. Patient is progressing well towards discharge planning. Objective - Vital Signs Vital signs: Vital Signs Temp 98.0 F 09/30/24 07:19 Pulse 74 09/30/24 07:19 Resp 15 09/30/24 07:19 BP 87/46 09/30/24 07:19 Pulse Ox 97 09/30/24 07:19 FiO2 Intake & Output 09/29/24 09/30/24 09/30/24 18:59 06:59 18:59 Intake Total 300 500 Output Total 100 Balance 200 500 Weight 49.895 kg Intake: IV 300 500 Output: Estimated Blood Loss 100 Other: Voiding Method Toilet # Voids 2 2 # Bowel Movements 0 - Exam Physical Examination General: The patient is awake and alert, in no acute distress. Skin: Skin is warm and dry with no obvious rashes or lesions. Surgical incis ion to the lumbar spine, dressing is clean dry and intact. Eye: Pupils are equal, round and reactive to light, extra-ocular movements are intact; there is normal conjunctiva bilaterally. Neck: The neck is supple, there is no tenderness and ROM intact. Respiratory: Respirations are non-labored. Gastrointestinal: Soft, non-distended, non-tender abdomen. Back: There is no tenderness to palpation in the midline, paralumbar, parathoracic or buttocks region. There is no obvious deformity. Musculoskeletal: ROM limited secondary to pain and stiffness from surgical procedure. Right: Shoulder abduction 5/5, elbow flexors 5/5, wrist dorsiflexors 5/5. finger abductor 5/5, electronic sales and service technician 5/5, hip flexor 5/5, knee flexor 5/5, ankle dorsiflexor 5/5, ankle plantarflexion 5/5 and extensor hallucis 5/5 Left: Shoulder abduction 5/5, elbow flexors 5/5, wrist dorsiflexors 5/5 . finger abductor 5/5, electronic sales and service technician 5/5, hip flexor 4/5, knee flexor 4/5, ankle dorsiflexor 4/5, ankle plantarflexion 4/5 and extensor hallucis 5/5. Neurological: CN 2-12 intact. There are no obvious motor or sensory deficits. Movement and coordination equal and intact. Sensory exam to light touch intact C5-T1 and intact from L2-S1. Reflexes 2/4 in bilateral upper and lower extremities. Negative Hoffmans, babinski, and clonus signs. Psychiatric: Cooperative, appropriate mood & affect, normal judgment. - Labs CBC & Chem 7: 09/30/24 03:57 09/30/24 03:57 Labs: Abnormal Lab Results - Last 24 Hours (Table) 09/30/24 09/30/24 Range/Units 03:57 03:57 RBC 3.18 L (4.10-5.20) X 10*6/uL Hgb 9.9 L (12.0-15.0) g/dL Hct 29.1 L (37.2-46.3) % Eosinophils # 0.03 L (0.04-0.35) X 10*3/uL Calcium 8.4 L (8.7-10.3) mg/dL Assessment and Plan Assessment: Postop day 1: L5-S1 laminoforaminotomy with microdiscectomy and posterolateral interbody fusion Plan: -Appreciate child development consultant and team management. -Activity: Ambulate QID, OOB all meals, up and about, limit lifting bending twisting to less than 5 lbs. Use walker or cane if needed for stability. -Daily PT/OT, increase ambulation strength and balance. -Pain control: Adequate at this time -Meds: reviewed -GI ppx: senna, Miralax -DVT PPX: TEDs, SCDs -Hygiene: Maintain incision clean and dry. May change dressing as needed, please document in notes if performed. Meticulous cleaning after BMs away from the incision site -Encourage IS 10x/hr -Dispo: Anticipate discharge home tomorrow 10/01/24 *I reviewed and discussed this case with my attending Dr. Holloway, whom has reviewed this chart and films and is in agreement with assessment and plan of care as outlined above. I have personally seen and examined the patient, performed the documentation and the assessment and plan as written. Number of minutes spent on the visit: 20m.
[2024-09-30] MEDS: HYDROcodone/APAP 5-325MG 1 EACH TAB PO PRN (15:58)
[2024-10-01 02:05] VITALS: TEMP 98.2
--- NOTE | 2024-10-01 05:27 | PN ---
PROGRESS NOTE DATE OF SERVICE: 09/30/2024 SUBJECTIVE: This 34-year-old woman who was admitted with severe back pain and central disc herniation with spinal stenosis, underwent L5-S1 possible lateral interbody fusion and laminectomy. The patient is being closely monitored. No chest pain. No palpitation. OBJECTIVE: VITAL SIGNS: Pulse is 68, blood pressure 91/45, respirations 15. HEENT: Conjunctivae normal. CARDIOVASCULAR: S1, S2. RESPIRATIONS: Breath sounds diminished at the bases. ABDOMEN: Soft. BACK: Status post surgery. LABORATORY DATA: Hemoglobin 8.9. ASSESSMENT: 1. Back pain and radiculopathy with large central disc herniation with spinal canal stenosis, L5-S1 with the spinal cord compression, status post L5-S1 possible lateral interbody fusion and bilateral laminectomy and decompression. 2. Anxiety. 3. History of THC. RECOMMENDATIONS: Recommend to continue current management and symptomatic treatment. Otherwise, I would recommend repeat labs. DVT prophylaxis. Closely follow with Orthopedic Surgery. Further recommendations to follow. MMODL / IJN: [id number] /
[2024-10-01 07:15] VITALS: BP 99/60; PULSE 72; RESP 16
[2024-10-01 08:16] LABS: Basophils # (A) 0.03 X 10*3/uL (0.00-0.10); Basophils % (A) 0.5 %; Eosinophils # (A) 0.10 X 10*3/uL (0.04-0.35); Eosinophils % (A) 1.6 %; HCT 27.3 % (37.2-46.3); HGB 9.3 g/dL (12.0-15.0); Immature Grans, Automated 0.20 %; Lymphocytes # (A) 2.17 X 10*3/uL (0.90-5.00); Lymphocytes % (A) 34.0 %; MCH 31.6 pg (27.0-32.0); MCHC 34.1 g/dL (32.0-37.0); MCV 92.9 FL (80.0-97.0); Monocytes # (A) 0.49 X 10*3/uL (0.20-1.00); Monocytes % (A) 7.7 %; NRBC Per 100 WBC 0 X 10*3/uL (0.00-0.01); Neutrophils # (A) 3.58 X 10*3/uL (1.80-7.70); Neutrophils % (A) 56.0 %; Platelet Count 120 X 10*3/uL (140-440); RBC 2.94 X 10*6/uL (4.10-5.20); RDW 11.9 % (11.5-14.5); WBC 6.38 X 10*3/uL (4.50-10.00)
[2024-10-01 08:22] LABS: Anion Gap 7.90 mmol/L (4.00-12.00); BUN/Creat Ratio 17.50 Ratio (12.00-20.00); Blood Urea Nitrogen 10.5 mg/dL (9.0-27.0); Calcium 8.1 mg/dL (8.7-10.3); Carbon Dioxide 24.1 mmol/L (21.6-31.8); Chloride 107 mmol/L (96-109); Glucose 100 mg/dL (70-110); Potassium 3.8 mmol/L (3.5-5.5); Sodium 139 mmol/L (135-145)
--- NOTE | 2024-10-01 08:46 | P.PN ---
Subjective Progress Note Date: 10/01/24 Principal diagnosis: 1. L5-S1 large new herniated nucleus pulposus with severe stenosis 2. Impending caudal symptoms 3. Lower extremity radiculopathy BIlateral 4. Low back pain severe 5. Lower extremity weakness Patient seen and examined this morning. Patient is resting comfortably in bed. She states that she had just ambulated to the restroom and is tolerating act ivity well. She does continue to report intermittent numbness tingling and some shooting pain into the left lower extremity. Discussed with patient that this may be present for the next few months due to the nerve irritation. Patient verbalizes understanding. Discharge instructions have been discussed. Patient is cleared from a orthopedic standpoint for discharge when medically stable. Objective - Vital Signs Vital signs: Vital Signs Temp 98.2 F 10/01/24 07:14 Pulse 72 10/01/24 07:14 Resp 16 10/01/24 07:14 BP 99/60 10/01/24 07:14 Pulse Ox 98 10/01/24 07:14 FiO2 Intake & Output 09/30/24 10/01/24 10/01/24 18:59 06:59 18:59 Intake Total 540 Balance 540 Intake: Oral 540 Other: Voiding Method Toilet Toilet # Voids 2 - Exam Physical Examination General: The patient is awake and alert, in no acute distress. Skin: Skin is warm and dry with no obvious rashes or lesions. Surgical incision to the lumbar spine, dressing is clean dry and intact. Eye: Pupils are equal, round and reactive to light, extra-ocular movements are intact; there is normal conjunctiva bilaterally. Neck: The neck is supple, there is no tenderness and ROM intact. Respiratory: Respirations are non-labored. Gastrointestinal: Soft, non-distended, non-tender abdomen. Back: There is no tenderness to palpation in the midline, paralumbar, parathoracic or buttocks region. There is no obvious deformity. Musculoskeletal: ROM limited secondary to pain and stiffness from surgical procedure. Right: Shoulder abduction 5/5, elbow flexors 5/5, wrist dorsiflexors 5/5. finger abductor 5/5, network contract manager 5/5, hip flexor 5/5, knee flexor 5/5, ankle dorsiflexor 5/5, ankle plantarflexion 5/5 and extensor hallucis 5/5 Left: Shoulder abduction 5/5, elbow flexors 5/5, wrist dorsiflexors 5/5. finger abductor 5/5, network contract manager 5/5, hip flexor 4/5, knee flexor 4/5, ankle dorsiflexor 4/5, ankle plantarflexion 4/5 and extensor hallucis 5/5. Neurological: CN 2-12 intact. There are no obvious motor or sensory deficits. Movement and coordination equal and intact. Sensory exam to light touch intact C5-T1 and intact from L2-S1. Reflexes 2/4 in bilateral upper and lower extremities. Negative Hoffmans, babinski, and clonus signs. Psychiatric: Cooperative, appropriate mood & affect, normal judgment. - Labs CBC & Chem 7: 10/01/24 04:19 10/01/24 04:19 Labs: Abnormal Lab Results - Last 24 Hours (Table) 10/01/24 10/01/24 Range/Units 04:19 04:19 RBC 2.94 L (4.10-5.20) X 10*6/uL Hgb 9.3 L (12.0-15.0) g/dL Hct 27.3 L (37.2-46.3) % Plt Count 120 L (140-440) X 10*3/uL MPV 12.4 H (9.5-12.2) FL Calcium 8.1 L (8.7-10.3) mg/dL Assessment and Plan Assessment: Postop day 2: L5-S1 laminoforaminotomy with microdiscectomy and posterolateral interbody fusion Plan: -Appreciate programmer analyst consultant and team management. -Activity: Ambulate QID, OOB all meals, up and about, limit lifting bending twisting to less than 5 lbs. Use walker or cane if needed for stability. -Daily PT/OT, increase ambulation strength and balance. -Pain control: Adequate at this time -Meds: reviewed -GI ppx: senna, Miralax -DVT PPX: TEDs, SCDs -Hygiene: Maintain incision clean and dry. May change dressing as needed, please document in notes if performed. Meticulous cleaning after BMs away from the incision site -Encourage IS 10x/hr -Dispo: Patient is cleared from a orthopedic standpoint for discharge when medically stable. *I reviewed and discussed this case with my attending Dr. Holloway, whom has reviewed this chart and films and is in agreement with assessment and plan of care as outlined above. I have personally seen and examined the patient, performed the documentation and the assessment and plan as written. Number of minutes spent on the visit: 20m.
[2024-10-01] MEDS: HYDROcodone/APAP 7.5-325MG 1 EACH TAB PO PRN (14:57)
--- NOTE | 2024-10-04 12:33 | P.DS ---
Providers Date of admission: 09/28/24 15:57 Expected date of discharge: 10/01/24 Attending physician: Bernard Elam Consults: 09/28/24 15:15 Consult Physician Stat Consulting Provider: Prasanth Holloway Consult Reason/Comments: Cauda equina Do you want consulting provider notified?: Already Contacted Primary care physician: Stated None Hospital Course: Final diagnosis Back pain and radiculopathy with a large central disc herniation with spinal cord stenosis with L5-S1 spinal cord compression status post L5-S1 lateral interbody fusion and laminectomy and decompression Anxiety History of THC GI prophylaxis DVT prophylaxis Full code Discharge disposition Patient is being discharged in a stable condition with guarded prognosis to home. Patient will follow-up with Dr. Holloway in the outpatient setting upon discharge. Patient is to follow-up with Dr. Tania Davila as scheduled. Resources were provided. Total time taken is greater than 35 minutes. Hospital course This is a 34-year-old female who was recently admitted with inability to ambulate with concerns of cauda equina had been going to chiropractor for intervention having worsening back pain and difficulty ambulating. Patient was evaluated by orthopedics due to severe back pain with central disc herniation and spinal stenosis and underwent L5-S1 lateral interbody fusion and laminectomy. Patient is doing well and up and walking and will be going home with home care being arranged. Patient has support in the home and would like to be discharged today. Pain is currently managed. Patient encouraged to follow-up with primary care provider and establish with 1 in the outpatient setting. Please refer to other consultation notes for further HPI. Currently no reports of chest pain, shortness of breath, or palpitations. Patient is afebrile. No reports of nausea or vomiting and patient is tolerating diet. Patient will be discharged home today. Guarded prognosis Physical exam: Gen: This is a 34-year-old female who is awake, alert and oriented x 3, well- developed, thin built HEENT: Head is atraumatic, normocephalic. Pupils equal, round. Sclerae is anicteric. NECK: Supple. No JVD. No lymphadenopathy. No thyromegaly. LUNGS: Clear to auscultation. No wheezes or rhonchi. No intercostal retractions. HEART: Regular rate and rhythm. No murmur. ABDOMEN: Soft. Bowel sounds are present. No masses. No tenderness. EXTREMITIES: No pedal edema. No calf tenderness. NEUROLOGICAL: Patient is awake, alert and oriented x3. Cranial nerves 2 through 12 are grossly intact. Diffusely weak Please refer to medication reconciliation sheet for a list of medications. The impression and plan of care has been dictated by Donna Craven, Nurse Practitioner as directed. Dr. Papa MD I have performed a history and examination and MDM of this patient, discussed the same with the dictator, and agree with the dictator's assessment and plan as written ,documented as a scribe. Based on total visit time, I have performed more than 50% of the visit. Patient Condition at Discharge: Fair Plan - Discharge Summary Discharge Rx Participant: No New Discharge Prescriptions: New Sulfamethox-Tmp 800-160Mg [Bactrim DS 800-160 mg] 1 tab PO Q12HR #10 tab Gabapentin [Neurontin] 300 mg PO TID #90 cap Docusate [Colace] 100 mg PO BID cap Acetaminophen Tab [Tylenol] 650 mg PO Q6HR tab Cholecalciferol [Vitamin D3 (125 Mcg = 5000 Iu)] 125 mcg PO DAILY #30 tab Cyclobenzaprine [Flexeril] 5 mg PO TID PRN #40 tablet PRN Reason: Muscle Spasm Naproxen [Naprosyn] 500 mg PO BID #28 tablet HYDROcodone/APAP 5-325MG [[place] 5-325] 1 tab PO Q4HR PRN #40 tab PRN Reason: Pain Sennosides/Docusate Sodium [Senna-S 8.6-50 mg Tablet] 1 each PO DAILY PRN #20 tablet PRN Reason: Constipation Ascorbic Acid [Vitamin C] 250 mg PO DAILY #30 tab Discontinued Ibuprofen [Motrin Ib] 400 - 600 mg PO Q4H PRN PRN Reason: Pain Discharge Medication List Acetaminophen Tab [Tylenol] 650 mg PO Q6HR tab 10/01/24 [Rx] Ascorbic Acid [Vitamin C] 250 mg PO DAILY #30 tab 10/01/24 [Rx] Cholecalciferol [Vitamin D3 (125 Mcg = 5000 Iu)] 125 mcg PO DAILY #30 tab 10/01/24 [Rx] Cyclobenzaprine [Flexeril] 5 mg PO TID PRN #40 tablet 10/01/24 [Rx] Docusate [Colace] 100 mg PO BID cap 10/01/24 [Rx] Gabapentin [Neurontin] 300 mg PO TID #90 cap 10/01/24 [Rx] HYDROcodone/APAP 5-325MG [[place] 5-325] 1 tab PO Q4HR PRN #40 tab 10/01/24 [Rx] Naproxen [Naprosyn] 500 mg PO BID #28 tablet 10/01/24 [Rx] Sennosides/Docusate Sodium [Senna-S 8.6-50 mg Tablet] 1 each PO DAILY PRN #20 tablet 10/01/24 [Rx] Sulfamethox-Tmp 800-160Mg [Bactrim DS 800-160 mg] 1 tab PO Q12HR #10 tab 10/01/24 [Rx] Follow up Appointment(s)/Referral(s): Tania Davila MD [REFERRING] - 1-2 days Prasanth Holloway DO [Doctor of Osteopathic Medicine] - 10/16/24 9:15 am Activity/Diet/Wound Care/Special Instructions: Spine Discharge and Recovery Instructions Date of Surgery: 09/29/2024 Diagnosis: L5-S1 large left paracentral HNP, left lower extremity radiculopathy, impending cauda equina Procedure: L5-S1 laminal foraminotomy with microdiscectomy and posterolateral interbody fusion Medications: See medication list All medication refills should be obtained through your primary care doctor or your clinic spine surgeon. Please discuss prescription refills at your follow up appointment. Do not call the hospital for medication refills. Activity: Encourage ambulation with assist of walker, Up and about 6-8x daily PT/OT daily work on balance, strength and mobility Up in chair with all meals Shower daily Brace: Use brace when up and about, do not wear in bed or shower Dressing: Leave your dressing in place for a total of 3 days post operatively. Then you may remove your dressing and leave open to air. Keep the area clean and if not able to keep area clean, then cover with sterile gauze and tape. Showering: You may shower 3 days after your procedure allowing soap and water to run over incision. Do not scrub. Do not soak. Blot dry. Follow up: Please confirm a follow up appointment with your surgeon 2 weeks post operatively. Please make an appointment to follow up with your PCP in 1-2 weeks after surgery for evaluation '3 phase, 3-week plan' POST OP WEEKS 1-3 1. Lifting/carrying/pushing/pulling limited to less than 5 pounds. 2. Do not sit for longer than 15 minutes at one time. Get up and walk around. Prolonged sitting is NOT advised. If you lay down, see if you can tolerate laying down on you front (belly side) 3. Walk for periods of 15 minutes = 1 mile but no longer; do it multiple times times each day. 4. Ice your low back after activity. POST OP WEEKS 3-6 1. Lifting limited to less than 20 pounds. 2. Do not sit for longer than 30 minutes at a time. Frequently change positions. Use a sit-to stand workstation or take frequent breaks from sitting if you have returned to work. 3. Walk for 30 minutes each day. If possible, do these three or more times a day POST OP WEEKS 6+ At your 6-week appointment we will give you a physical therapy referral to focus on a core stabilization and strengthening program. You should also work on leg & buttock strengthening, hamstring & quadriceps stretching, and continue a low impact aerobic activity program such as swimming, walking, or riding a stationary bicycle. During the initial 6 weeks after your surgery, you are at the highest risk of re-injuring your spine. You should generally avoid BLT's (bending, lifting and twisting combination motions) and follow the above guidelines to reduce the chance of reinjury. You can anticipate post op appointments in our office at approximately 3 weeks and 6 weeks after your surgery. INCISION CARE: If your incision is not draining you do NOT need to cover it with a dressing. Keep your incision clean, dry and intact. In most cases, we apply skin glue, jessi or sutures to the incision at the time of surgery. This will be like a crust or have the appearance of a scab and will fall off in time on its own. The stitches or jessi need to be removed at 3 weeks post op appointment. You may begin to shower 3 days after surgery (this allows the glue to diallo well). However, please avoid scrubbing the incision site or peeling off any of the skin glue. This will ensure optimal healing of your incision. Also, during this time avoid soaking the incision area in water - this includes swimming pools, hot tubs or baths. No ointments, lotions or oils on the incision until your surgeon allows. Leave jessi, sutures or glue in place. Neurological dysfunction that comes on suddenly can also be a sign of a stroke. Below some common symptoms of a stroke are listed: B - balance difficulty such as sudden onset walking or leaning to one side - NEW E - eye problem such as sudden double vision or trouble seeing on one side - NEW F - Facial weakness or numbness on one side - NEW A - Arm or leg weakness or numbness on one side - NEW S - Slurred speech or difficulty with word finding - NEW T - Time is BRAIN! Call 911 as soon as you recognize these symptoms Diet: Consume a regular diet rich in vegetables and lean protein such as chicken or fish. You should consume in a ratio of approximately 20% fats|40% carbohydrates|40%protein. Vegetables, sweet potatoes, brown rice or quinoa are examples of good carbohydrates. Chips, white bread, cookies and sweets/sugar are examples of bad carbohydrates. Limit your bad carbs, go wild with good carbs. "Life's Simple 7" Guidelines as per [place] [employer] These will help you reclaim your life after surgery and water filterer helper in your recovery, keeping in mind your restrictions. (1) Get Active. Physical activity can help people lose weight, control high blood pressure and cholesterol, feel emotionally better, and sleep better. (2) Control Cholesterol. Avoid a diet high in saturated fat, trans fat, & cholesterol. Limit whole milk & cream, ice cream, butter, egg yolks, processed meats (like sausage and hot dogs), and fatty meats. Choose healthy foods that are low in saturated fat, trans fat and cholesterol which include: Fruits and vegetables, fiber rich grain products (like whole grain pasta and brown rice), lean meat such as chicken, fish, nuts, seeds, and legumes. (3) Eat Better. Eat small portions. Shop at the grocery with a list and do not stray from it. Tips for a healthy diet include: Limit sodium intake to less than 1500mg daily, avoid prepackaged, processed, and fast foods, choose a diet rich in fruits, vegetables, and whole grain, high fiber foods, and limit saturated & cholesterol in your diet. (4) Manage Blood Pressure. If you have high blood pressure, you should have a cuff at home so that you can check your blood pressure regularly. Be sure you have a good cuff. An arm one is generally better than a wrist one. Bring the cuff to a doctor's appointment to validate that the measurements that your cuff are taking are accurate. Take your blood pressure twice daily when you are sitting down and relaxing. Record the numbers in a log and bring this log with you to your doctors' appointments. (5) Lose Weight if your BMI is above 25. A healthy BMI is between 19-25. To calculate Your BMI, you may use a Standard BMI Calculator on the NIH BMI website: <www.nhlbi.nih.gov/guidelines/obesity/BMI/bmicalc.htm>. Weigh oneself daily. If you are overweight, set a goal to lose weight. A pound a week loss if needed is a good target. (6) Reduce Blood Sugar. Limit foods and liquids with "added sugars." (Added sugars include sucrose, fructose, glucose, maltose, dextrose, high fructose corn syrup, corn syrup, concentrated fruit juice and honey). (7) Stop Smoking. If you smoke, quitting smoking is one of the best things that you can do for your health. Smoking increases your risk of heart attack, stroke, and peripheral vascular disease, which is a build-up of plaque in your arteries. Please discard all the cigarettes and lighters in your house. Have a plan for what you will do when you have the urge to smoke. Direct and second- hand smoke shortens your life as well as the lives of your family, friends and others around you. For your health and the health of those around you, please consider quitting! Proper Bending Body Mechanics: Maintain a wide stance with one foot slightly in front of the other. Keep your back straight. Bend utilizing the strength in your hips and knees. Do not bend at the waist. Maintain the lifted object at your waist-level close to your body. Avoid lifting weight that causes immediately pain or pain anywhere in the body afterwards. Smoking/Nicotine If there was ever one thing that you could do to increase your overall health, decrease your risk of cardiovascular problems by about 39% the second you make the choice, it is to STOP SMOKING. Your body's most instant gratification is the second you stop smoking. We have all heard the studies, read the articles but it is true, smoking is extremely bad for your overall health, and moreover it is detrimental to your bone health. Nicotine, IN ANY FORM, kills bone cells, prevents your body from healing fractures, and significantly prolongs healing after surgery. In spine surgery specifically, it increases your risk of not healing your bones to create a fusion and increases your risk of having a revision surgery due to this up to 60%. I know it is hard. I know it feels impossible. But there are ways. Take control of your life. We are here to help you through it. And when you are ready, ask us and we can direct you to help if you desire. Use the START Plan to Quit Smoking (please visit the [employer] website listed below for more information): S = Set a quit date. Choose a date within the next 2 weeks, so you have enough time to prepare without losing your motivation to quit. If you mainly smoke at work, quit on the weekend, so you have a few days to adjust to the change. T = Tell family, friends, and co-workers that you plan to quit. Let your friends and family in on your plan to quit smoking and tell them you need their support and encouragement to stop. Look for a quit juan jose who wants to stop smoking as well. You can help each other get through the rough times. A = Anticipate and plan for the challenges you'll face while quitting. Most people who begin smoking again do so within the first 3 months. You can help yourself make it through by preparing ahead for common challenges, such as nicotine withdrawal and cigarette cravings. R = Remove cigarettes and other tobacco products from your home, car, and work. Throw away all your cigarettes (no emergency pack!), lighters, ashtrays, and matches. Wash your clothes and freshen up anything that smells like smoke. Shampoo your car, clean your drapes and carpet, and steam your furniture. T = Talk to your doctor about getting help to quit. Your doctor can prescribe medication to help with withdrawal and suggest other alternatives. If you can't see a doctor, you can get many products over the counter at your local pharmacy or grocery store, including the nicotine patch, nicotine lozenges, and nicotine gum. Resources for Quitting Smoking: <https://www.[place].gov/documents/mdch/Quit_Tobacco_Resources_for_patients_313 480_7.pdf> Supplementation: Take recommended dosages of Vitamin D and Calcium to help fortify your bones and help them to heal. See your health maintenance packet for dosages and recommended levels. DVT/VTE prophylaxis: You will be given compression stockings from the hospital. Wear these daily for the first two weeks after surgery. You may take them off at night. You may be prescribed a medication to help thin your blood. Take this as directed. If you are not prescribed this medication, early and frequent ambulation has been shown to be the best prophylaxis to deep vein thrombosis and sequelae related to this event. Discharge/Stand Alone Forms: Area PCPs Discharge Disposition: HOME SELF-CARE
== END 2024-10-01 15:56 | disposition home or self-care (01) | DRG 451 ==
LOC: EC 11:05 → 4SSUR 15:57
PROVIDERS: ADMIT Hospitalist; ATTEND Hospitalist
PROC: 0ST40ZZ Resection of Lumbosacral Disc, Open Approach (ICD-10-PCS; principal; 2024-09-29 11:30)
PROC: 0SG30AJ Fusion of Lumbosacral Joint with Interbody Fusion Device, Posterior Approach, Anterior Column, Open Approach (ICD-10-PCS; principal; 2024-09-29 11:30)
DX: M48.07 Spinal stenosis, lumbosacral region (principal); G95.29 Other cord compression; G83.4 Cauda equina syndrome; F41.9 Anxiety disorder, unspecified; M51.17 Intervertebral disc disorders with radiculopathy, lumbosacral region; M47.27 Other spondylosis with radiculopathy, lumbosacral region; M51.16 Intervertebral disc disorders with radiculopathy, lumbar region; M51.379 Other intervertebral disc degeneration, lumbosacral region without mention of lumbar back pain or lower extremity pain; Z28.310 Unvaccinated for COVID-19; Z28.21 Immunization not carried out because of patient refusal; Z88.0 Allergy status to penicillin
CPT/HCPCS: 36415; 71045; 72100; 72131; 72158; 80048; 80053; 81003; 84703; 85025; 96374; 96375; 96376; 99285